=== PATIENT | male | born 1930 | race Caucasian/White ===

== ENCOUNTER 2016-07-21 19:54 | Emergency (ER) | payer MEDICARE, OTHER ==
[~2016-07-21] VITALS: Ht 180.3 cm; Wt 77.1 kg
[2016-07-21 21:48] LABS: Urine Bilirubin Negative (Negative); Urine Color Yellow (Yellow); Urine Glucose Normal (Normal); Urine Ketone Negative (Negative); Urine Mucus FEW (None Seen); Urine Nitrite Negative (Negative); Urine RBC 6 /hpf (0 - 3); Urine Urobilinogen Normal (Negative); Urine pH 5.5 (5.0-8.0)
[2016-07-21 21:49] LABS: Basophils # (auto) 0.1 uL; Basophils % (auto) 0.9 % (0.0-2.0); DEFINITIVE VIEW TRANSMISSION; Eosinophils # (auto) 0 uL; Eosinophils % (auto) 0.5 % (0.0-7.0); Hematocrit 49.6 % (41.0-53.0); Hemoglobin 15.8 g/dL (13.5-17.5); Lymphocytes % (auto) 15.4 % (10.0-50.0); Mean Corpuscular Hemoglobin 32.6 pg (28.0-32.0); Mean Corpuscular Hgb Conc. 31.8 g/dL (32.0-36.0); Mean Corpuscular Volume 102.4 fL (80.0-100.0); Mean Platelet Volume 8.4 fL (7.4-10.4); Monocytes # (auto) 0.8 uL; Monocytes % (auto) 12.3 % (0.0-12.0); Neutrophils # (auto) 4.5 uL; Neutrophils % (auto) 70.9 % (37.0-80.0); Platelet Count (auto) 151 10^3/uL (140-450); White Blood Cell 6.4 10^3/uL (4.4-10.8)
[2016-07-21 22:09] LABS: Urine Blood 1+ /uL (Negative)
[2016-07-21 22:15] LABS: Albumin 3.8 g/dL (3.4-5.0); BUN/Creatinine Ratio 20.4; Calcium 8.8 mg/dL (8.5-10.1); Potassium 3.9 mmol/L (3.5-5.1)
[2016-07-21 22:17] LABS: Bilirubin, Total 0.8 mg/dL (0.2-1.0); Total Protein 7.2 g/dL (6.4-8.2)
[2016-07-21 23:10] VITALS: BP 131/66
[2016-07-21] MEDS ORDERED: cefTRIAXone 1GM/50ML D5W 50 ML IV ONE (23:45)
[2016-07-22] MEDS ORDERED: cefTRIAXone SOD 1,000 MG VL IM ONE
== END 2016-07-22 00:33 | disposition home or self-care (01) ==
LOC: EDBD 19:54 → ER 20:01
DX: J06.9 Acute upper respiratory infection, unspecified (principal); G30.9 Alzheimer's disease, unspecified; F02.80 Dementia in other diseases classified elsewhere, unspecified severity, without behavioral disturbance, psychotic disturbance, mood disturbance, and anxiety; I10 Essential (primary) hypertension
CPT/HCPCS: 36415; 71010; 80053; 81001; 83605; 84484; 85025; 87040; 93005; 96372; 99285; J0696